=== PATIENT | male | born 1945 | race Caucasian/White ===

== ENCOUNTER 2018-03-04 09:00 | Inpatient (IN) | payer OTHER ==
[2018-03-04 10:18] LABS: Absolute Lymphocytes (CBC) 1.2 K/uL (0.7-4.9); Absolute Monocytes 0.6 K/uL (0.1-1.3); Basophils % 0.5 % (0-1.3); Eosinophils % 1.2 % (0-4.4); Hematocrit 36.8 % (39.6-49.0); MCH 30.9 pg (27.0-35.0); MCV 92.5 fL (80-100); MPV 8.8 fL (7.6-11.3); Monocytes % 12.2 % (3.3-12.3); RBC Red Blood Cell Count 3.98 M/uL (4.33-5.43)
[2018-03-04 10:35] LABS: Albumin 3.8 g/dL (3.4-5.0); Bilirubin Direct 0.1 mg/dL (0-0.2); Bilirubin Total 0.5 mg/dL (0.2-1.0)
[2018-03-04 10:35] LABS: Urine Appearance CLEAR; Urine Bilirubin NEGATIVE (NEG); Urine Blood 1+ (NEG); Urine Color YELLOW; Urine Glucose NEGATIVE (NEG); Urine Protein NEGATIVE (NEG); Urine Specific Gravity 1.015 (1.005-1.030); Urine Urobilinogen 0.2 mg/dL (0.2-1.0)
[2018-03-04 10:37] LABS: Albumin 3.8 g/dL (3.4-5.0); Bilirubin Total 0.5 mg/dL (0.2-1.0); Protein, Total 7.1 g/dL (6.4-8.2); Protime INR 1.33
[2018-03-04 10:50] LABS: Urine Microscopic Reflex NO UMIC
--- NOTE | 2018-03-04 10:55 | RAD REPORT ---
EXAM DESCRIPTION: Johnna Smith (2 Views)03/04/2018 9:53 am CLINICAL HISTORY: Preop for knee surgery COMPARISON: July 2017 FINDINGS: The lungs are mildly hyperaerated. The lungs appear clear of acute infiltrate. The heart is normal size IMPRESSION: No acute abnormalities displayed
--- NOTE | 2018-03-04 16:54 | EKG ---
Test Date: 2018-03-04 Test Time: 09:31:15 Parts Department Manager: DALJIT MEASUREMENT RESULTS: Intervals: Rate: 50 [place]: 218 QRSD: 86 QT: 448 QTc: 408 [place]: P: 42 [place]: 218 QRS: -19 T: 17 INTERPRETIVE STATEMENTS: Sinus bradycardia with 1st degree AV block Otherwise normal ECG Compared to ECG 08/01/2017 10:35:39 First degree AV block now present Atrial fibrillation no longer present ST (T wave) deviation no longer present Electronically Signed On 03-04-18 16:53:27 CDT by Adebayo George
[2018-03-10] MEDS ORDERED: Ringers Lactate 1,000 ML IV ONE ×2 (06:15→08:23)
[2018-03-10] MEDS ORDERED: CEFAZOLIN/SWI 1gm 1 GM/10 ML SYR ONE (06:15)
[2018-03-10] MEDS ORDERED: LIDOCAINE 2% MPF 5 ML VIAL ONE (06:53)
[2018-03-10] MEDS ORDERED: PROPOFOL 200 MG/20 ML VIAL IV ONE (06:53)
[2018-03-10] MEDS ORDERED: FENTANYL CITR 250 MCG/5 ML ONE (06:53)
[2018-03-10] MEDS ORDERED: MIDAZOLAM HCL 2 MG/2 ML INJ ONE (06:53)
[2018-03-10] MEDS ORDERED: BUPIVACA 0.25%/EPI 0.0005%/PF 30 ML VIAL ONE (06:59)
[2018-03-10] MEDS ORDERED: NA CHLORIDE 0.9% 250 ML ONE (06:59)
[2018-03-10] MEDS ORDERED: ROPLVACAINE HCL 40 ML ONE (07:01)
[2018-03-10] MEDS ORDERED: DEXAMETHASONE 4 MG/ML VIAL ONE (07:01)
[2018-03-10] MEDS ORDERED: TRANEXAMIC ACID 1,000 MG in NA CHLORIDE 0.9% 50 ML IV ONE (08:00)
--- NOTE | 2018-03-10 11:16 | P.BOP ---
Preoperative diagnosis: PRIMIARY OSTEOARTHRITIS LEFT KNEE Postoperative diagnosis: SAME Primary procedure: LEFT KNEE TKA WITH COMPUTERNAVIGATION, IMAGELESS [employer]os Executive Producer: MAGDIEL OLSEN (GAVE VERY NECESSARY 1ST ASSIST SERVICES THROUGHOUT) Estimated blood loss: 50 mL Specimen: BONE SHARDS AND SOFT TISSUES DEBRIDED Findings: WORN AND ANGLED LATERAL COMPARTMENT Anesthesia: General Complications: Other (this patient woke in Recovery indicating he had severe left shoulder pain. He did not respond to them or all 75 mg or any injection of Marcaine directly into the posterior aspect of the intro articular left shoulder. The patient continued with discomfort described as 7/10 in intensity. on examination the patient had free and supple motion that was observed his shoulder did not have indication of displacement or dislocation of home health patient exam. Neurovascular exam was intact to the best of my ability to examine it as patient remained moderately confused in the early part of his recovery.) Implants: LT SIGMA FEMUR SZ6 PS;MBT L 6 REV.TRAY;38mm OD PATELLA;SZ6X12.5 PSRP INSERT Fluids & blood products: INJ. 30 mL0.25%MARCAINE INTO INCISION Transferred to: Recovery Room Condition: Good
[2018-03-10] MEDS ORDERED: ZOLPIDEM TARTRATE 5 MG TABLET PO PRN (11:17)
[2018-03-10] MEDS ORDERED: ONDANSETRON 4 MG/2 ML VIAL IV PRN (11:17)
[2018-03-10] MEDS ORDERED: DOCUSATE NA 100 MG CAP PO PRN (11:17)
[2018-03-10 11:26] LABS: Hematocrit 34.8 % (39.6-49.0)
[2018-03-10] MEDS ORDERED: MEPERIDINE HCL 25 MG/0.5 ML ONE ×2 (11:40→11:45)
[2018-03-10] MEDS: MEPERIDINE HCL 25 MG/0.5 ML ONE ×2 (11:55→12:10)
[2018-03-10] MEDS ORDERED: IBUPROFEN 200 MG TAB PO ONE (12:04)
[2018-03-10] MEDS ORDERED: BUPIVACAINE 0.5% PF 10 ML VIAL ONE (12:22)
[2018-03-10] MEDS ORDERED: BUPIVACAINE 0.25% PF 30 ML VIAL ONE (12:23)
--- NOTE | 2018-03-10 12:31 | RAD REPORT ---
EXAM DESCRIPTION: RAD - Knee Left 2 View - 03/10/2018 12:06 pm CLINICAL HISTORY: Left knee surgery. Knee replacement. FINDINGS: Post surgical changes of a left knee arthroplasty are seen. The prosthesis is in good position. No fracture or dislocation is seen
[2018-03-10] MEDS: Ringers Lactate 1,000 ML IV SCH (13:13)
[2018-03-10] MEDS: CEFAZOLIN/SWI 1gm 1 GM/10 ML SYR IVP SCH (16:38)
[2018-03-11] MEDS: CEFAZOLIN/SWI 1gm 1 GM/10 ML SYR IVP SCH (01:07)
[2018-03-11] MEDS: MORPHINE 4 MG/ML SYR IV PRN ×5 (04:26→21:04)
[2018-03-11 05:25] LABS: Hematocrit 31.9 % (39.6-49.0)
[2018-03-11] MEDS: HYDROCODONE/APAP 7.5/325 MG TAB PO PRN ×5 (06:29→22:56)
[2018-03-11] MEDS: FE SULF/FA/VIT B COMP & C TAB PO SCH (08:03)
[2018-03-11] MEDS: Ringers Lactate 1,000 ML IV SCH (08:04)
[2018-03-12] MEDS: MORPHINE 4 MG/ML SYR IV PRN ×3 (00:31→18:50)
[2018-03-12] MEDS ORDERED: FAMOTIDINE 20 MG TAB PO ONE (00:50)
[2018-03-12] MEDS: Ringers Lactate 1,000 ML IV SCH (04:00)
[2018-03-12] MEDS: HYDROCODONE/APAP 7.5/325 MG TAB PO PRN ×5 (04:41→20:31)
[2018-03-12] MEDS: FE SULF/FA/VIT B COMP & C TAB PO SCH (08:37)
--- NOTE | 2018-03-12 13:32 | P.PN ---
Date of Service: 03/11/18 (POD#1) S: PATIENT HAVING SOME DIFFICULTY CONTROLLING PAIN SINCE BLOCK WORE OFF AT 04: 00. PUSHING HIMSELF TO DO FULL LAP AROUND NURSING STATION WITH PT THIS AM. O: AFEBRIL, VVS, HGB 10.7,DOWN FROM 11.2 POST-OP. CPM UNCOMFORTABLE IN EXTENSION, RUNNING AT 0*-65*. DEVORA WRAP AND SOFT ROLL REMOVED, MINIMAL DRAINAGE IN AQUACEL BANDAGE. NV EXAM INTACT. X-RAYS REVIEWED,GOOD ALIGNMENT OF PROSTHETIC COMPONENTS NOTED. A: GOOD PROGRESS FOR POD#1 P: CONTINUE ALTERNATING IV AND PO PAIN MEDS NEEDED. ROM CPM CHANGED TO 15*-60 * TEMPORARILY. CONTINUE MOBILIZATION.
--- NOTE | 2018-03-12 13:43 | P.PN ---
Date of Service: 03/12/18 (POD#2) S: PATIENT HAS NOTED IMPROVEMENT IN PAIN CONTROL; NOW USING NORCO ONLY INDICATING HE WANTS IV REMOVED. DID ANOTHER FULL LAP AROUND NURSING STATION WITH PT THIS AM. O: AFEBRIL, VVS, HGB 11.1, UP FROM 10.7 YESTERDAY. CPM STILL UNCOMFORTABLE IN EXTENSION, PATIENT PUSHING HEEL TO FOOT OF BED TO WORK ON EXTENSION. BANDAGE DRY AND INTACT. BENJAMIN'S NEGATIVE. NV EXAM INTACT.. A: GOOD PROGRESS FOR POD#2 P: WOULD KEEP BESSY LOCK IN PLACE OVERNIGHT IN CASE IV MORPHINE NEEDED. CONTINUE MOBILIZATION. EXPECT DISCHARGE TOMORROW WITH BANDAGE CHANGE PRIOR TO DISCHARGE. NEW AQUACEL TO BE APPLIED AFTER ALCOHOL SWABS. CPM FOR HOME USE 0*-65 * SLOW SPEED 3-4 HRS/D, INCREASING ROM 5*/D TOLERATED TO MAX 120*. F/U DR. GAMA'S OFFICE IN 7-10 D. XARELTO TO BE RESTARTED TODAY ALONG WITH OTHER HOME MEDS.
[2018-03-12] MEDS ORDERED: RIVAROXABAN 20 MG TABLET PO SCH (17:00)
--- NOTE | 2018-03-12 20:00 | OP ---
Date of Procedure: 03/10/2018 Surgeon: Rohit Cheung MD Garland Machine Operator: MADDY Resendez, who gave very necessary esl instructional assistant services throughout this case. Preoperative Diagnosis: Primary osteoarthritis, left knee. Postoperative Diagnosis: Primary osteoarthritis, left knee. Primary Procedures: Left knee total knee arthroplasty with computer navigation, imageless. Indications: This patient had his right TKA done in July of 2017. He has had bilaterally severe primary osteoarthritis with genu valgum deformities, primarily involving the lateral compartments, a nd he has elected to proceed with TKA for his left knee. Technique: The patient was taken to the operating room, having been given a sciatic nerve and femora l nerve block in the holding area. He was placed on the operative table with a bolster under the lef t hip and a foot rest with the knee in the 90 degree bent position. A tourniquet was applied to the proximal thigh. After prepping and draping, the limb had the incision marked and the operative site covered with Ioban sticky drape, prior to application of the Esmarch bandage for compression and exsa nguination, prior to elevating the tourniquet to 250 mmHg. Time-out was called and all questions wer e answered, appropriate facts discussed, and it was decided to proceed with surgery. The incision wa s made longitudinally beginning 4 cm above the superior pole of the patella and ending 4 cm below the distal pole of the patella just medial to the tibial tubercle. Sharp dissection was carried out to expose the joint capsule and the medial parapatellar approach through the capsule was done sharply as well. The patella was everted and measured at 24 mm in thickness. A size 38 mm oval dome patella w as chosen and adjustments were made to the cutting jig and the articular surface was removed with the oscillating saw. PEG holes were drilled and the trial patellar prosthesis was placed in position an d again the calipers measured 24 mm. The patellar trial prosthesis was removed. A metal ronni was pu t in its place to protect the patellar surface. The patella was moved into the everted position agai n and sharp debridement was carried out to the anterior knee and anterior aspect of the distal femora l cortex just above the articular margin. After excision of soft tissue and Bovie coagulation plus A quamantys coagulation, 3 mm threaded pins x2 were placed in the proximal end of the incision in the d istal femur and through puncture wounds into the midportion of the tibial shaft leaning toward the me dial side at each location. The femoral and tibial arrays were connected to the stabilizing pins, an d then the limb was moved in circumduction, so the computer could berry picker the center of rotation for the femoral head. Registration was carried out in sequence for the femur and verified and then taken in sequence for the tibia and verified. At that point, flexion and extension was used to record tho se positions at 0 degrees and 90 degrees. The computers solved for a size 6 femur and size 6 tibial trays. These were accepted, and the cutting jig was navigated into position to make the proximal tib ial cut. That cut was made and verified and then the tensiometer was placed in position. The estima brandy joint space was appropriate without ligament releases, so the attention was turned to the navigat ing the distal femoral cutting jig into place. That cut was made and verified and then size-gottlieb, th e size 6 component was appropriate, so the size 6 4-in-1 cutting jig was navigated into position. Th e anterior cut was made and verified and then posterior cuts and chamfer cuts were made. The extensi on and flexion blocks were placed in position and the fit seemed to be quite appropriate. The anteri or cutting jig was navigated into position and the box cuts were made and removed. The prosthetic fe moral trial was excellent fit. It was removed and attention was turned to preparing the proximal tib ia. The proximal tibia was prepared for the MBT revision tray, and a size 6 was put in position and was a good fit, and the size 6 trial with the femoral component and a 10 mm insert also made a good f it. All trial components were removed after reaming and keel cut were made for the tibia. Two batch es of Simplex Biomet cement with gentamicin were mixed in a cement gun and injected in the irrigated and dried cancellous surfaces first of the tibia with the component tapped into position and excess c ement curetted away and then with the femur with the femoral component tapped into position after inj ection technique with cement was utilized. The injection technique was also used for the cut patella r surface and the 38 mm oval dome patella was compressed into place and clamped. After cement was se t, the 10 mm insert and 12.5 mm insert were compared and the 12.5 by a size 6 PSRP insert was placed in position and proved to be an excellent fit. Injection was carried out for the margins of the inci nicholas using 30 mL of 0.25% Marcaine with epinephrine. The knee was irrigated profusely and closed in layers using #1 Vicryl for the capsular layer and 2-0 Vicryl for the subcutaneous layer, both with in terrupted sutures. The skin katelyn were used for skin closure. The tourniquet was released at 2 ho urs and 15 minutes, 135 minutes. Estimated Blood Loss: 50 mL. Sent to pathology were bone shards and soft tissues debrided. The findings were a worn and angled la teral compartment as expected from x-rays and previous right knee surgery. Anesthesia: General with LMA plus femoral and sciatic nerve blocks. In awakening in recovery, the patient indicated he had severe left shoulder pain, and did not respond to 75 mg of IV Demerol, so an injection of 0.25% Marcaine plain directly into the posterior aspect o f the intra-articular left shoulder was carried out after alcohol prep. The patient continued with d iscomfort described as 7/10 in intensity, even after the injection, but seemed calmer. On examinatio n, the patient was demonstrating free and supple motion of both shoulders, reaching high above his he ad and moving his hands down behind his neck to approximately T2 and T3. The palpable examination of the left shoulder did not reveal any subluxation or displacement of the humeral head. In speaking w ith the patient's , she did mention that he had arthritic complaints with the left shoulder and h ad been aggressively caring out mowing activities and other chores on the day prior to surgery. Neur ovascular exam was intact to the best of my ability to examine it as the patient remained moderately confused in the early part of his post anesthesia care. The implants chosen were left Sigma femur si ze 6 posterior stabilized; MBT left, size 6 revision tray; 38 mm oval dome patella; size 6 x 12.5 pos terior stabilized rotating platform insert. In the recovery room, the patient was too agitated to sorenson ve a CPM applied, it was applied when he reached the acute care floor and set to be 0 degrees to 60 d egrees at a slow rate. Bandages applied were Aquacel sealed bandages covered by a soft roll and an A ce wrap. LANA/RETA Voice ID: [id number] Report ID: [id number]
[2018-03-12] MEDS ORDERED: ATORVASTATIN 10 MG TAB PO SCH (21:00)
[2018-03-13] MEDS: HYDROCODONE/APAP 7.5/325 MG TAB PO PRN ×3 (00:40→11:05)
[2018-03-13 05:24] LABS: Hematocrit 29.4 % (39.6-49.0)
[2018-03-13] MEDS ORDERED: LISINOPRIL 20 MG TAB PO SCH (06:00)
[2018-03-13] MEDS ORDERED: HOME MED 1 EA UNK (Tadalafil [Cialis] 5 MG) PO SCH (09:00)
[2018-03-13] MEDS: MORPHINE 4 MG/ML SYR IV PRN (09:02)
[2018-03-13] MEDS: FE SULF/FA/VIT B COMP & C TAB PO SCH (09:02)
--- NOTE | 2018-04-10 10:49 | DS ---
Date of Discharge: 03/13/2018 Hospital Course: Peña Temple was brought to elective surgery for left total knee arthroplasty for primary osteoarthritis, left knee. His primary procedure was TKA with computer navigation using imageless technique for the left knee osteoarthritis. Following the procedure, during which the left Sigma femur size 6 PS, MBT left size 6 revision tray, and 38 mm oval dome patella were all cemented in place with [place] Simplex cement with gentamicin. A size 6 x 12.5 posterior stabilized rotating platform insert was selected and proved quite stable. After surgery, the patient was taken to the recovery room and placed in a CPM machine moving from 0 degrees to 60 degrees. The patient's post operative period was complicated with severe left shoulder pain for no obvious reason. Demerol 75 mg did not provide relief and injection of Marcaine was given directly into the posterior aspect of the intra-articular left shoulder. The patient continued with discomfort described as 7/10 in intensity, but was constantly demonstrating free and supple motion as he moved the shoulder to seek relief from his discomfort. Examination revealed no sign of dislocation or displacement. Neurovascular exam was intact. The patient was moderately confused during this early part of his recovery room stay, but by the following morning, had no complaints with his left shoulder. On the post op 1 day, 03/11/2018, the patient was describing some difficulty in controlling pain after his femoral nerve and sciatic nerve blocks wore off at 4: 00 a.m. He was pushing himself to do a full lap around the nursing station with his first physical therapy Visit of the morning. The patient was afebrile. Hemoglobin was 10.7, down from 11.2 Postoperatively. CPM was uncomfortable in extension running at 0 degrees to 65 degrees. Jaydon wrap and soft roll were removed to inspect the Aquacel bandage showing minimal drainage. Neurovascular exam was intact. X-rays were reviewed and showed good alignment of prosthetic components. Recommendation was to continue alternating IV and oral pain medications as needed. The range of motion for his CPM was changed to 15 degrees to 60 degrees temporarily. On the second postoperative day, the patient was noted to have improvement in pain control. He was using Crockett tablets only indicating he wanted his IV removed. He had done another full lap around the nursing station with physical therapy in the morning visit. The patient's vital signs remained stable. Hemoglobin was 11.1, up from the day prior 10.7. CPM was still uncomfortable in extension. The patient was actively pushing his heel towards the foot of the bed to work on extension. Bandage remained dry and intact. Homans sign was negative. Neurovascular exam was intact. The saline lock was left in place overnight in case any additional need for IV morphine arose. Mobilization was to be continued expecting discharge the following day with bandage change prior to discharge. A new Aquacel would be applied after alcohol swabs were used. CPM for home use was prescribed to be 0 to 65 degrees at a slow speed, increasing range of motion 5 degrees per day as tolerated to a maximum of 120 was planned. Follow up to my office was to be in 7-10 days. The patient was to restart his Xarelto along with his other home medications. The following morning, the patient was discharged prior to my rounds as expected. Discharge medications included hydrocodone 7.5/325 APAP 1 tablet p.o. q.4 hours p.r.n. pain, number dispensed 50. The patient was discharged on March 13, 2018. LANA/RETA Voice ID: [id number] Report ID: [id number]
== END 2018-03-13 12:45 | disposition home or self-care (01) | DRG 470 ==
LOC: EDSTATUS 09:00 → DSO 03-10 06:04 → 2ND 03-10 12:39
PROVIDERS: ADMIT Orthopaedic Surgery; ATTEND Orthopaedic Surgery
PROC: 3E0U3BZ Introduction of Anesthetic Agent into Joints, Percutaneous Approach (ICD-10-PCS; 2018-03-10)
PROC: 8E0YXBZ Computer Assisted Procedure of Lower Extremity (ICD-10-PCS; 2018-03-10)
PROC: 0SRD0J9 Replacement of Left Knee Joint with Synthetic Substitute, Cemented, Open Approach (ICD-10-PCS; principal; 2018-03-10 07:30)
DX: M17.12 Unilateral primary osteoarthritis, left knee (principal); I10 Essential (primary) hypertension; I25.10 Atherosclerotic heart disease of native coronary artery without angina pectoris; M06.9 Rheumatoid arthritis, unspecified; M10.9 Gout, unspecified; Z96.651 Presence of right artificial knee joint; M25.512 Pain in left shoulder; Z79.01 Long term (current) use of anticoagulants; Z79.1 Long term (current) use of non-steroidal anti-inflammatories (NSAID); Z88.6 Allergy status to analgesic agent
CPT/HCPCS: 36415; 71046; 80053; 80076; 81003; 83036; 85014; 85018; 85025; 85610; 85730; 86850; 86900; 86901; 88304; 88311; 93005; 97163; J0690; J2175; J2250; J2795

== ENCOUNTER 2018-04-24 15:16 | Emergency (ER) | payer OTHER ==
--- OUTSIDE RECORDS SUMMARY | 2018-04-24 15:19 | XMS REPORT ---
:1945 Author Organization e[employer] Care Team Providers Name Role Phone Rohit Cheung Provider Role Unavailable Allergies, Adverse Reactions, Alerts Substance Reaction Event Type Aspirin EC Extra Strength Info Not Available Drug Allergy Problems Problem Type Condition Code Onset Dates Condition Status Problem Aftercare following joint Z47.1 Active replacement surgery Problem Presence of left artificial knee Z96.652 Active joint Problem Other chronic pain G89.29 Active Assessment Aftercare following joint Z47.1 Active replacement surgery Assessment Presence of left artificial knee Z96.652 Active joint Assessment Pain in left knee M25.562 Active Medications Medication Code Code Instructions Start End Status Dosage System Date Date Lisinopril [facility] [address]-58 Active not defined Pravastatin [facility] [address]-52 Active not Sodium defined Xarelto [facility] 98416137407 20 MG Orally Active 1 tablet Once a day with food Adirondack [facility] 84175892013 7.5-325 MG March 13, Active 1 tablet Orally every 2017 as needed hrs Cialis [facility] [address]-75 Active not defined Results No Known Results Summary Purpose [employer]ClinicalWorks Submission
--- OUTSIDE RECORDS SUMMARY | 2018-04-24 15:19 | XMS REPORT ---
:1945 Author Organization [employer] Care Team Providers Name Role Phone Rohit Cheung Provider Role Unavailable Allergies, Adverse Reactions, Alerts Substance Reaction Event Type Aspirin EC Extra Strength Info Not Available Drug Allergy Problems Problem Type Condition Code Onset Dates Condition Status Assessment Presence of left artificial knee Z96.652 Active joint Assessment Pain, joint, knee, left M25.562 Active Problem Aftercare following joint Z47.1 Active replacement surgery Problem Presence of left artificial knee Z96.652 Active joint Problem Pain, joint, knee, left M25.562 Active Assessment Other chronic pain G89.29 Active Assessment Aftercare following joint Z47.1 Active replacement surgery Problem Other chronic pain G89.29 Active Medications Medication Code Code Instructions Start End Status Dosage System Date Date Xarelto [facility] 15665482525 20 MG Orally Active 1 tablet Once a day with food Lisinopril [facility] [address]-53 Active not defined Cialis [facility] [address]-67 Active not defined Pravastatin [facility] [address]-45 Active not Sodium defined Tramadol HCl [facility] 33948584610 50 MG Orally April 01, Active 1 tablet every 6 hrs 2018 as needed Results No Known Results Summary Purpose eClinicalWorks Submission
--- OUTSIDE RECORDS SUMMARY | 2018-04-24 15:19 | XMS REPORT ---
[...] Start End Status Dosage System Date Date Tramadol HCl [facility] 94787776847 50 MG Orally Apr 22, Active 1 tablet every 6 hrs 2017 as needed Lisinopril [facility] [address]-11 Active not defined Xarelto [facility] 51584387405 20 MG Orally Active 1 tablet Once a day with food Tramadol HCl ND 02029256931 50 MG Orally April 01, Active 1 tablet every 6 hrs 2018 as needed Pravastatin [facility] [address]-86 Active not Sodium defined Cialis [facility] [address]-58 Active not defined Results No Known Results Summary Purpose [employer]ClinicalWorks Submission
--- OUTSIDE RECORDS SUMMARY | 2018-04-24 15:19 | XMS REPORT ---
:1945 Author Organization [employer] Care Team Providers Name Role Phone Rohit Cheung Provider Role Unavailable Allergies, Adverse Reactions, Alerts Substance Reaction Event Type Aspirin EC Extra Strength Info Not Available Drug Allergy Problems Problem Type Condition Code Onset Dates Condition Status Assessment Presence of left artificial knee Z96.652 Active joint Problem Aftercare following joint Z47.1 Active replacement surgery Problem Presence of left artificial knee Z96.652 Active joint Problem Pain, joint, knee, left M25.562 Active Assessment Pain, joint, knee, left M25.562 Active Assessment Aftercare following joint Z47.1 Active replacement surgery Problem Other chronic pain G89.29 Active Medications Medication Code Code Instructions Start End Status Dosage System Date Date Xarelto [facility] 72580530615 20 MG Orally Active 1 tablet Once a day with food [place] [facility] 37633854429 7.5-325 MG March 13, Active 1 tablet Orally every 6 2017 as needed hrs Pravastatin [facility] [address]-00 Active not Sodium defined Cialis [facility] [address]-04 Active not defined Tramadol HCl [facility] 09743276428 50 MG Orally April 01, Active 1 tablet every 6 hrs 2018 as needed Lisinopril [facility] [address]-81 Active not defined Results No Known Results Summary Purpose eClinicalWorks Submission
[2018-04-24] MEDS ORDERED: FAMOTIDINE 20 MG/2 ML VIAL IV ONE (15:39)
[2018-04-24] MEDS ORDERED: ONDANSETRON 4 MG/2 ML VIAL ONE (15:39)
[2018-04-24] MEDS ORDERED: CLOPIDOGREL 75 MG TABLET ONE (15:48)
[2018-04-24 15:49] LABS: Absolute Monocytes 0.8 K/uL (0.1-1.3); Absolute Neutrophil 4.5 K/uL (1.8-8.0); Basophils % 0.6 % (0-1.3); Hematocrit 34.4 % (39.6-49.0); Lymphocytes % 15.9 % (15.3-44.8); MCH 31.2 pg (27.0-35.0); MCV 93.3 fL (80-100); MPV 8.5 fL (7.6-11.3); Monocytes % 12.2 % (3.3-12.3); RBC Red Blood Cell Count 3.69 M/uL (4.33-5.43)
[2018-04-24 15:54] LABS: Protime INR 1.25
--- NOTE | 2018-04-24 15:54 | RAD REPORT ---
EXAM DESCRIPTION: RAD - Chest Single View - 04/24/2018 3:45 pm CLINICAL HISTORY: Nausea, abdominal pain, shortness of breath COMPARISON: March 04 TECHNIQUE: AP portable chest image was obtained 1542 hours . FINDINGS: Chronic interstitial lung disease present similar to comparison. No failure, infiltrate or mass. Heart and vasculature are normal. No measurable pleural effusion and no pneumothorax. No gross bony abnormality seen. No acute aortic findings suspected. IMPRESSION: No acute cardiopulmonary process. No significant change from comparison.
[2018-04-24 16:06] LABS: Albumin 3.8 g/dL (3.4-5.0); Bilirubin Direct 0.1 mg/dL (0-0.2); Bilirubin Total 0.3 mg/dL (0.2-1.0); CKMB Creatine Kinase MB 2.7 ng/mL (0.3-3.6); Magnesium 2.3 mg/dL (1.8-2.4); Potassium 3.9 mmol/L (3.5-5.1); Protein, Total 7.2 g/dL (6.4-8.2)
--- NOTE | 2018-04-24 17:11 | EKG ---
Test Date: 2018-04-24 Test Time: 15:36:31 Depositing Machine Operator: DT/V MEASUREMENT RESULTS: Intervals: Rate: 57 [place]: 190 QRSD: 92 QT: 434 QTc: 422 [place]: P: 53 [place]: 190 QRS: 3 T: 47 INTERPRETIVE STATEMENTS: Sinus bradycardia with premature atrial complexes Otherwise normal ECG Compared to ECG 03/04/2018 09:31:15 Atrial premature complex(es) now present First degree AV block no longer present Electronically Signed On 04-24-18 17:10:19 CDT by Gian Bran
[2018-04-24 18:26] LABS: CKMB Creatine Kinase MB 2.7 ng/mL (0.3-3.6)
--- NOTE | 2018-04-24 18:38 | ER ---
Nurse's Notes [facility] Name: Peña Temple Age: 73 yrs Sex: Male : 1945 Arrival Date: 04/24/2018 Time: 15:19 Bed 25 Private MD: Tony Arzate E Diagnosis: Nausea Presentation: 04/24 15:22 Presenting complaint: Patient states: I was doing PT this morning and when I finished I la1 was nauseous, this is not normal for me and in the context I want to have my heart checked. Transition of care: patient was not received from another setting of care. Onset of symptoms was April 24, 2018. Risk Assessment: Do you want to hurt yourself or someone else? Patient reports no desire to harm self or others. Initial Sepsis Screen: Does the patient meet any 2 criteria? No. Patient's initial sepsis screen is negative. Does the patient have a suspected source of infection? No. Patient's initial sepsis screen is negative. Care prior to arrival: None. 15:22 Method Of Arrival: Ambulatory la1 15:22 Acuity: AARON 3 la1 Historical: - Allergies: 15:25 Aspirin; la1 - PMHx: 15:25 Hypertension; High Cholesterol; Atrial Fib; la1 - Immunization history:: Adult Immunizations up to date. - Social history:: Smoking status: Patient/guardian denies using tobacco. - Ebola Screening: : No symptoms or risks identified at this time. Screenin:27 Abuse screen: Denies threats or abuse. Denies injuries from another. Nutritional aj screening: No deficits noted. Tuberculosis screening: No symptoms or risk factors identified. Fall Risk None identified. Assessment: 15:27 General: Appears in no apparent distress. comfortable, Behavior is calm, cooperative, aj appropriate for age. Pain: Denies pain. Neuro: Level of Consciousness is awake, alert, obeys commands, Oriented to person, place, time, situation, Appropriate for age. Cardiovascular: Denies chest pain. Respiratory: Airway is patent Respiratory effort is even, unlabored, Respiratory pattern is regular, symmetrical. GI: Abdomen is flat, non-distended, Reports nausea. Derm: Skin is intact, is healthy with good turgor, Skin is pink, warm \T\ dry. normal. 17:35 Reassessment: Patient appears in no apparent distress at this time. No changes from aj previously documented assessment. Patient and/or family updated on plan of care and expected duration. Pain level reassessed. Patient is alert, oriented x 3, equal unlabored respirations, skin warm/dry/pink. Patient denies pain at this time. 18:46 Reassessment: Patient appears in no apparent distress at this time. No changes from aj previously documented assessment. Patient and/or family updated on plan of care and expected duration. Pain level reassessed. Patient is alert, oriented x 3, equal unlabored respirations, skin warm/dry/pink. Patient denies pain at this time. Vital Signs: 15:25 Weight 79.38 kg; Height 6 ft. 0 in. (182.88 cm); la1 15:27 BP 139 / 88; Pulse 61; Resp 18; Temp 98.1; Pulse Ox 98% on R/A; aj 17:35 BP 130 / 85; Pulse 56; Resp 20; Pulse Ox 100% on R/A; aj 18:46 BP 130 / 80; Pulse 100; Resp 16; Pulse Ox 96% on R/A; aj 15:25 Body Mass Index 23.73 (79.38 kg, 182.88 cm) la1 ED Course: 15:19 Patient arrived in ED. mr 15:19 Tony Arzate MD is Private Physician. mr 15:23 [facility] cp 15:23 Waldo Galloway MD is Attending Physician. cp 15:24 Triage completed. la1 15:25 Arm band placed on left wrist. la1 15:26 Roselyn Douglass, MARK is Primary Nurse. aj 15:27 Patient has correct armband on for positive identification. Pulse ox on. NIBP on. aj 15:27 Inserted saline lock: 20 gauge in left forearm, using aseptic technique. Blood aj collected. 15:42 EKG done, by cvt tech. reviewed by Darren DRIVER. dt2 15:44 X-ray completed. Portable x-ray completed in exam room. Patient tolerated procedure bb2 well. 15:45 XRAY Chest (1 view) In Process Unspecified. EDMS 17:55 Repeat lab(s) drawn. by nm, sent to lab. tm3 18:36 Tony Arzate MD is Referral Physician. cp 18:46 No provider procedures requiring assistance completed. IV discontinued, intact, aj bleeding controlled, No redness/swelling at site. Pressure dressing applied. Administered Medications: 15:39 Drug: Zofran 4 mg Route: IVP; Site: left forearm; aj 18:15 Follow up: Response: No adverse reaction aj 15:39 Drug: Pepcid 20 mg Route: IVP; Site: left forearm; aj 18:16 Follow up: Response: No adverse reaction aj 15:56 CANCELLED (Patient Refused): PlaVIX 75 mg PO once aj Outcome: 18:36 Discharge ordered by MD. cp 18:46 Discharged to home ambulatory. aj 18:46 Condition: good 18:46 Discharge instructions given to patient, Instructed on discharge instructions, follow up and referral plans. Demonstrated understanding of instructions, follow-up care. 18:48 Patient left the ED. aj Signatures: Dispatcher [employer] EDArvin Orozco tm3 Roselyn Douglass, RN Ayaka Noonan, Adonis RN RN la1 Darren Koch PA PA Jessica Marino2 Sheila Rolon dt2
--- NOTE | 2018-04-24 18:38 | EDPHYS ---
Physician Documentation [facility] Name: Peña Temple Age: 73 yrs Sex: Male : 1945 Arrival Date: 04/24/2018 Time: 15:19 Bed 25 Private MD: Tony Arzate E ED Physician Waldo Galloway HPI: 04/24 15:30 This 73 yrs old Male presents to ER via Ambulatory with complaints of Nausea. cp 15:30 The patient presents to the emergency department with nausea, that is mild. cp 15:30 Onset: The symptoms/episode began/occurred this morning, after finishing physical cp therapy about 1030. Possible causes: unknown. 15:30 Associated signs and symptoms: Pertinent negatives: abdominal pain, anorexia, diarrhea, cp fever, GI bleeding, vomiting, chest pain. Severity of symptoms: in the emergency department the symptoms are unchanged despite home interventions. Historical: - Allergies: 15:25 Aspirin; la1 - PMHx: 15:25 Hypertension; High Cholesterol; Atrial Fib; la1 - Immunization history:: Adult Immunizations up to date. - Social history:: Smoking status: Patient/guardian denies using tobacco. - Ebola Screening: : No symptoms or risks identified at this time. ROS: 15:35 Constitutional: Negative for body aches, chills, fever, poor PO intake. cp 15:35 Eyes: Negative for injury, pain, redness, and discharge. cp 15:35 ENT: Negative for drainage from ear(s), ear pain, sore throat, difficulty swallowing, difficulty handling secretions. 15:35 Neck: Negative for pain with movement, pain at rest, stiffness, tenderness, bony tenderness. 15:35 Cardiovascular: Negative for chest pain, edema, palpitations. 15:35 Respiratory: Negative for cough, dyspnea on exertion, orthopnea, shortness of breath, wheezing. 15:35 Abdomen/GI: Positive for nausea, Negative for abdominal pain, vomiting, constipation, black/tarry stool, rectal bleeding. 15:35 Back: Negative for pain at rest, pain with movement, radiated pain. 15:35 : Negative for urinary symptoms. 15:35 Skin: Negative for cellulitis, rash. 15:35 Neuro: Negative for altered mental status, dizziness, headache, syncope, near syncope, weakness. 15:35 All other systems are negative. Exam: 15:35 Head/Face: Normocephalic, atraumatic. Eyes: Pupils equal round and reactive to light, cp extra-ocular motions intact. Lids and lashes normal. Conjunctiva and sclera are non-icteric and not injected. Cornea within normal limits. Periorbital areas with no swelling, redness, or edema. ENT: Nares patent. No nasal discharge, no septal abnormalities noted. Tympanic membranes are normal and external auditory canals are clear. Oropharynx with no redness, swelling, or masses, exudates, or evidence of obstruction, uvula midline. Mucous membranes moist. Neck: Trachea midline, no thyromegaly or masses palpated, and no cervical lymphadenopathy. Supple, full range of motion without nuchal rigidity, or vertebral point tenderness. No Meningismus. Chest/axilla: Normal chest wall appearance and motion. Nontender with no deformity. No lesions are appreciated. 15:35 Constitutional: The patient appears in no acute distress, alert, awake, non-diaphoretic, non-toxic, well developed, well nourished. 15:35 Cardiovascular: Rate: normal, Rhythm: regular, Pulses: Pulses are 2+ in right radial artery and left radial artery. Edema: is not appreciated, JVD: is not appreciated. 15:35 Respiratory: the patient does not display signs of respiratory distress, Respirations: normal, no use of accessory muscles, no retractions, no splinting, no tachypnea, Breath sounds: are clear throughout, no decreased breath sounds, no stridor, no wheezing. 15:35 Abdomen/GI: Inspection: abdomen appears normal, Bowel sounds: active, all quadrants, Palpation: abdomen is soft and non-tender, in all quadrants, rebound tenderness, is not appreciated, voluntary guarding, is not appreciated, involuntary guarding, is not appreciated. 15:35 Back: pain, is absent, ROM is normal. 15:35 Musculoskeletal/extremity: Exam is negative for calf tenderness, decreased range of motion, edema, injury, Sensation intact. 15:35 Skin: cellulitis, is not appreciated, no rash present. 15:35 Neuro: Orientation: to person, place \T\ time. Mentation: Cerebellar function: is grossly normal, Motor: moves all fours, strength is normal, Sensation: is normal. 15:40 ECG was reviewed by the Attending Physician. cp Vital Signs: 15:25 Weight 79.38 kg; Height 6 ft. 0 in. (182.88 cm); la1 15:27 BP 139 / 88; Pulse 61; Resp 18; Temp 98.1; Pulse Ox 98% on R/A; aj 17:35 BP 130 / 85; Pulse 56; Resp 20; Pulse Ox 100% on R/A; aj 18:46 BP 130 / 80; Pulse 100; Resp 16; Pulse Ox 96% on R/A; aj 15:25 Body Mass Index 23.73 (79.38 kg, 182.88 cm) la1 MDM: 15:24 Patient medically screened. cp 16:00 Differential diagnosis: Nonspecific abd pain, gastritis, cholecystitis, pancreatitis, cp angina, acute KS. 16:24 ED course: VSS. Patient reports symptoms improved and at this point declines admission cp for continued observation. Will continue to monitor, repeat EKG and enzymes. 18:35 Data reviewed: vital signs, nurses notes, lab test result(s), EKG, radiologic studies, cp plain films. 18:35 Test interpretation: by ED physician or midlevel provider: ECG, plain radiologic cp studies. Counseling: I had a detailed discussion with the patient and/or guardian regarding: the historical points, exam findings, and any diagnostic results supporting the discharge/admit diagnosis, lab results, radiology results, the need for outpatient follow up, a family practitioner, to return to the emergency department if symptoms worsen or persist or if there are any questions or concerns that arise at home. Response to treatment: the patient's symptoms have resolved after treatment, nausea resolved, and as a result, I will discharge patient. 04/24 15:30 Order name: Basic Metabolic Panel; Complete Time: 16:10 04/24 16:10 Interpretation: Normal except: GLUC 119; BUN 19; GFR 54. cp 04/24 15:30 Order name: CBC with Diff; Complete Time: 16:10 04/24 16:10 Interpretation: Normal except: RBC 3.69; HGB 11.5; HCT 34.4. cp 04/24 15:30 Order name: Ckmb; Complete Time: 16:10 04/24 15:30 Order name: CPK; Complete Time: 16:10 cp 04/24 16:10 Interpretation: Abnormal: CPK 319. cp 04/24 15:30 Order name: LFT's; Complete Time: 16:10 cp /17 15:30 Order name: Magnesium; Complete Time: 16:10 cp 04/24 15:30 Order name: NT PRO-BNP; Complete Time: 16:10 cp /17 16:10 Interpretation: Abnormal: NT PRO-BNP 267. cp / 15:30 Order name: PT-INR; Complete Time: 16:10 cp / 16:11 Interpretation: Reviewed. cp 04/24 15:30 Order name: Ptt, Activated; Complete Time: 16:10 cp 04/24 15:30 Order name: Troponin (emerg Dept Use Only); Complete Time: 16:10 cp / 16:11 Interpretation: TROPED 0.03; Reviewed. cp 04/24 15:31 Order name: Lipase; Complete Time: 16:10 cp 04/24 17:45 Order name: Ckmb; Complete Time: 18:34 cp 04/24 17:45 Order name: Creatine Phosphokinase; Complete Time: 18:34 cp 04/24 17:45 Order name: Troponin (emerg Dept Use Only); Complete Time: 18:34 cp 04/24 18:34 Interpretation: TROPED 0.02; Reviewed. cp 04/24 15:30 Order name: XRAY Chest (1 view); Complete Time: 16:10 cp 04/24 15:30 Order name: EKG; Complete Time: 15:31 cp 04/24 15:31 Order name: Cardiac monitoring; Complete Time: 16:01 cp 04/24 15:31 Order name: EKG - Nurse/Tech; Complete Time: 15:41 cp 04/24 15:31 Order name: IV Saline Lock; Complete Time: 15:41 cp 04/24 15:31 Order name: Labs collected and sent; Complete Time: 15:41 cp 04/24 15:31 Order name: O2 Per Protocol; Complete Time: 15:41 cp 04/24 15:31 Order name: O2 Sat Monitoring; Complete Time: 15:41 cp 04/24 17:45 Order name: EKG - Nurse/Tech; Complete Time: 18:13 cp 04/24 17:45 Order name: EKG; Complete Time: 17:45 cp 04/24 17:45 Order name: Repeat Cardiac Enzymes at: 1800; Complete Time: 18:15 cp EC:40 Rate is 57 beats/min. Rhythm is regular. DE interval is normal. QRS interval is normal. cp QT interval is normal. Interpreted by me. Reviewed by me. Administered Medications: 15:39 Drug: Zofran 4 mg Route: IVP; Site: left forearm; aj 18:15 Follow up: Response: No adverse reaction aj 15:39 Drug: Pepcid 20 mg Route: IVP; Site: left forearm; aj 18:16 Follow up: Response: No adverse reaction aj 15:56 CANCELLED (Patient Refused): PlaVIX 75 mg PO once aj Disposition: 04/25 15:50 Co-signature as Attending Physician, Waldo Galloway MD. Disposition: 04/24/18 18:36 Discharged to Home. Impression: Nausea. - Condition is Stable. - Discharge Instructions: Nausea, Adult. - Work release form, Medication Reconciliation Form, Thank You Letter, Antibiotic Education, Prescription Opioid Use form. - Follow up: Tony Arzate MD; When: 2 - 3 days; Reason: Recheck today's complaints. - Problem is new. - Symptoms have improved. Signatures: Dispatcher [employer] EDRoselyn Seyd RN RN aj Attema, Lee RN RN la1 Darren Koch PA PA Waldo Mccray MD MD Corrections: (The following items were deleted from the chart) 04/24 15:56 15:33 PlaVIX 75 mg PO once ordered. cp 18:48 18:36 04/24/2018 18:36 Discharged to Home. Impression: Nausea. Condition is Stable. aj Forms are Medication Reconciliation Form, Thank You Letter, Antibiotic Education, Prescription Opioid Use. Follow up: Tony Arzate; When: 2 - 3 days; Reason: Recheck today's complaints. Problem is new. Symptoms have improved. cp
== END 2018-04-24 18:48 | disposition home or self-care (01) ==
LOC: ER 15:16
DX: R11.0 Nausea (principal); I10 Essential (primary) hypertension; I48.91 Unspecified atrial fibrillation; Z88.6 Allergy status to analgesic agent
CPT/HCPCS: 36415; 71045; 80048; 80076; 82550 ×2; 82553 ×2; 83690; 83735; 83880; 84484 ×2; 85025; 85610; 85730; 93005 ×2; J2405; 96374; 96375; 99284

== ENCOUNTER 2022-03-05 08:56 | Day surgery (SDC) | payer OTHER ==
[2022-02-28 15:37] LABS: Absolute Lymphocytes (CBC) 1.5 K/uL (0.7-4.9); Hematocrit 37.1 % (39.6-49.0); Lymphocytes % 27.1 % (15.3-44.8); MPV 8.8 fL (7.6-11.3); RBC Red Blood Cell Count 3.95 M/uL (4.33-5.43)
[2022-02-28 15:42] LABS: Protime INR 1.24
--- NOTE | 2022-02-28 15:45 | RAD REPORT ---
EXAM DESCRIPTION: RAD - Chest Pa And Lat (2 Views) - 02/28/2022 3:37 pm CLINICAL HISTORY: Pre op pending urolift COMPARISON: Chest Single View dated 04/24/2018; Chest Pa And Lat (2 Views) dated 03/04/2018Chest Singl e View dated 04/24/2018; Chest Pa And Lat (2 Views) dated 03/04/2018; Abdomen Pelvis W/Wo Contrast da brandy 12/25/2018 FINDINGS: Lines: None. Lungs: No evidence of edema or pneumonia. Emphysema. Pleural: No significant pleural effusions or pneumothorax. Cardiac: The heart size is within normal limits. Bones: No acute fractures. Other: IMPRESSION: No acute cardiopulmonary disease.
[2022-02-28 16:00] LABS: SARS-CoV-2 Antigen Rapid Res Negative (Negative)
[2022-02-28 16:06] LABS: Potassium 4.7 mmol/L (3.5-5.1)
--- NOTE | 2022-03-02 17:33 | EKG ---
Test Date: 2022-02-28 Test Time: 15:16:15 Automatic Winder Operator: THIEN MEASUREMENT RESULTS: Intervals: Rate: 45 WI: 226 QRSD: 90 QT: 454 QTc: 392 [place]: P: 51 WI: 226 QRS: -5 T: 38 INTERPRETIVE STATEMENTS: Marked sinus bradycardia with 1st degree AV block Abnormal ECG Compared to ECG 04/24/2018 15:36:31 First degree AV block now present Atrial premature complex(es) no longer present Electronically Signed On 03-02-22 17:29:43 CDT by Rip Nguyen
[2022-03-05] MEDS ORDERED: Ringers Lactate 1,000 ML IV ONE (09:19)
[2022-03-05] MEDS ORDERED: CEFAZOLIN 2 GM IN 0.9% NACL 2 GM/100 ML BAG ONE (09:19)
[2022-03-05] MEDS ORDERED: LIDOCAINE 1% MPF 5 ML VIAL ONE (11:05)
[2022-03-05] MEDS ORDERED: FENTANYL CITR 100 MCG/2 ML ONE (11:05)
[2022-03-05] MEDS ORDERED: propofoL 200 MG/20 ML VIAL IV ONE (11:05)
[2022-03-05] MEDS ORDERED: MIDAZOLAM HCL 2 MG/2 ML INJ ONE (11:05)
[2022-03-05] MEDS ORDERED: dexAMETHasone 10 MG/ML VIAL ONE (11:05)
[2022-03-05] MEDS ORDERED: GLYCOPYRROLATE 0.2 MG/ML SYR ONE ×2 (11:56→12:01)
[2022-03-05] MEDS ORDERED: KETOROLAC 30 MG/ML INJ ONE (12:04)
[2022-03-05] MEDS ORDERED: CODEINE 30MG/APAP 300MG TAB PO PRN (12:18)
[2022-03-05 13:01] VITALS: BP 122/73; TEMP 97; O2SAT 99
--- NOTE | 2022-03-06 06:57 | OP ---
Surgeon: MILDRED CRAWFORD Preoperative Diagnosis: Benign prostatic hypertrophy with lower urinary tract obstruction and sympto ms. Postoperative Diagnoses: 1.Benign prostatic hypertrophy with lower urinary tract obstruction and symptoms. 2.Meatal stenosis. Procedures: 1.Prostatic urethral lift/UroLift with 6 implants placed. 2.Meatal dilation using sounds. Indication For Procedure: Mr. Temple is a 76-year-old gentleman with obstructive lower urinary sym ptoms due to BPH. He also has atrial fibrillation intermittently and is on Xarelto and stopped that appropriately before the procedure. His BPH with incomplete emptying and urge incontinence was also complicated by recurrent prostatitis and he was ready for treatment to prevent further complications, but also to be able to cease medical therapy with Flomax. Procedure In Detail: The patient was consented in the preoperative holding area before being transfe rred to the operative suite where general anesthesia was induced. He was given Ancef 2 g IV antimicr obial prophylaxis and Pneumoboots were provided for DVT prophylaxis. He was placed in the lithotomy position, padded and secured to the table appropriately. His genitalia were prepped using Hibiclens and he was draped in standard fashion. The case was begun attempting to place the 20-Kazakh cystosco pe via the urethra, but meatal stenosis prohibited this. As a result, I utilized urethral sounds to dilate the meatus and fossa navicularis from 18-Kazakh to 24-Kazakh with ease. I was then able to pa ss the 20-Kazakh cystoscope bridge via the urethra into his bladder with ease. Along the way, I obse rved the previously described lateral lobar hypertrophy predominating without significant intravesica l projection. As a result, I decompressed his bladder of fluid and urine and then targeted his left anterolateral zone of the prostate by inserting an implant device via the cystoscope bridge. With th e device positioned anterolaterally approximately 2 cm from the bladder neck, I achieved approximatel y 20 degrees of lateral compression before firing the delivery device, which then deployed the needle through the prostate. The device was again deployed to place a capsular tab outside the prostate be fore an additional compression was performed and the device fired on 2 separate occasions to compress the lateral lobe. I then returned the device back to the midline of the lumen and advanced it appro ximately 1 or 2 mm in order to see the white of the monofilament within the window of the delivery de vice indicating appropriate tensioning with removal of slack monofilament. The implant was then affi xed to the end piece with cutting of the tab removing slack monofilament and the entirety of the aruna ce was delivered back into his bladder. I then replaced the implant with a new implant delivery aruna ce and performed a similar technique within the right lateral lobe of the prostate in the anterolater al region approximately 2 cm from the bladder neck. An additional implant was placed at the level of the verumontanum on the left and then an additional implant was placed at the level of the verumonta num on the right. Cystoscopic evaluation was then performed using the endoscopic bridge, and there w as still some anterolateral overhang at the region of the bladder neck. Significant reduction of the mid zone of the prostate lateral lobar hypertrophy had been achieved. As a result, I utilized the t echnique of placing an implant starting anteriorly and sweeping the tissue from the midline anteriorl y down laterally and approximately 2 cm from the bladder neck delivered an additional implant on the left side. This did open the bladder neck significantly; so I placed an additional implant at this t keaton on the right side using a similar technique, sweeping from anterior down to the anterolateral reg ion. Once this was completed, there was a nice anterior channel created from the bladder neck throug h beyond the verumontanum as visualized cystoscopically with his bladder completely decompressed. As a result, no further implants were necessary, so I left his bladder full and placed an 18-Kazakh cou de tip catheter into his bladder with ease. Approximately 15 cc of sterile water was placed in the b alloon, and the catheter was connected to a leg bag with return of light pink urine. The patient was then taken out of the lithotomy position, awakened from general anesthesia, transferred to [facility] er, and then transferred to the recovery room in good condition. Complications: None. Discharge Disposition: He will be discharged home with the catheter in place and instructions on how to remove it tomorrow morning at 7 a.m. If he is unable to void by 1 p.m., he should notify me via the office and be prepared to come in. Subsequent followup will be established in about a month, and I otherwise will discharge him with 3 days of antimicrobial as well as Tylenol with Codeine for pain management. LINDA/MODL Voice ID: [id number] Report ID: [id number]
== END 2022-03-05 13:24 | disposition home or self-care (01) ==
LOC: OR 08:56
PROVIDERS: ATTEND Urology
PROC: 3E1K78Z Irrigation of Genitourinary Tract using Irrigating Substance, Via Natural or Artificial Opening (ICD-10-PCS; 2022-03-05)
PROC: 0T7D8DZ Dilation of Urethra with Intraluminal Device, Via Natural or Artificial Opening Endoscopic (ICD-10-PCS; principal; 2022-03-05 10:30)
DX: N40.1 Benign prostatic hyperplasia with lower urinary tract symptoms (principal); Z20.822 Contact with and (suspected) exposure to COVID-19
CPT/HCPCS: 93005; 87088; 85025; 87086; 80048; 36415; 85610; 71046; 87811; 52441; 52442 ×5; 51700; J2704; J2250; J3010; J1100; J0690; J7120